=== PATIENT | male | born 1950 | race Two or more races ===

== ENCOUNTER → 2016-11-20 | Outpatient (CLI) | payer MEDICARE, BC ==
[~2016-11-20] MED LIST: ALBUTEROL17 GM INH; ATIVAN2 MG PO; BACLOFEN10 MG PO; CLARITIN10 M2 PO; FLEXERIL PO; FLEXERIL10 MG PO; HYDROCODON-ACE1 EAC4 PO; HYDROCODON-ACE1 EAC5; HYDROCODON-ACE1 EAC5 PO; LIPITOR; NEURONTIN PO; PREDNISONE PO
--- NOTE | ~2016-11-20 | CT71 ---
[facility] A Service of [facility] & [facility] RADIOLOGY TEXT RESULTS PATIENT: LYLY OLMSTEAD LOCATION: [facility] : 50 UNIT #: [id number] AGE: [address]: JOHN GUILLERMO MD SEX: M ORDER DR: [id number] [facility]. [id number] MR#: [id number] Acc #: [id number] NAME: LYLY OLMSTEAD. : 1950 SEX: M STUDY DATE/TIME: 11/20/2016 10:12 UNIT: [facility] ROOM: STUDY DESCRIPTION: CT Head Wo Contrast Attending Physician: John Guillermo M.D. Referring Physician: John Guillermo M.D. Ordering Physician: John Guillermo M.D. Primary Care Physician: John Guillermo M.D. MEDICAL IMAGING REPORT This report is preliminary unless electronic signature is present EXAM CT head without contrast. INDICATION Short-term memory loss for a while. TECHNIQUE Axial CT images were obtained from the vertex of the skull through the skull base. No intravenous contrast material was administered. This CT exam was performed with one or more of the following radiation dose reduction techniques: automatic exposure control, adjustment of mA and/or kV according to patient size, and iterative reconstruction. FINDINGS No acute cranial hemorrhage is identified. The patient is noted to have some cerebral atrophy which may be mildly advanced for the age of 66. There is no midline shift or mass effect. I do think the degree of atrophy is probably not significantly changed when compared to a prior study from 2013. No definite focal areas of decreased attenuation are seen. There is mucosal thickening seen within the ethmoid sinuses as well as maxillary sinuses bilaterally. Mastoid air cells appear clear. No aggressive osseous abnormalities are seen. IMPRESSION 1. No acute intracranial process identified. Specifically, there is no evidence of acute hemorrhage, mass lesion or acute infarct. 2. Mild cerebral atrophy perhaps mildly advanced for the patient's age of 66, but probably stable when compared to an March 2014 exam. 3. Sinus inflammatory changes as noted above. Dictated by... [facility] A Service of [facility] & [facility] RADIOLOGY TEXT RESULTS PATIENT: LYLY OLMSTEAD LOCATION: [facility] #: [id number] : 50 UNIT #: [id number] AGE: [address]: JOHN GUILLERMO MD SEX: M ORDER DR: Jerilyn Lauren M.D. THIS IS AN ELECTRONICALLY VERIFIED REPORT Jerilyn Lauren M.D. at 11/20/2016 5:21 PM AFF/jcruz TD: 11/20/2016 16:29 JOB #: [id number] MEDICAL IMAGING REPORT Page 1 of 1 COPY
== END | disposition home or self-care (01) ==
LOC: CCAT 09:53
DX: R41.3 Other amnesia (principal); G31.9 Degenerative disease of nervous system, unspecified
CPT/HCPCS: 70450